=== PATIENT | male | born 1945 | race Asian ===

== ENCOUNTER → 2022-10-04 | Outpatient (REF) | payer MEDICARE, OTHER | LOC: M LAB REF 16:40 | PROVIDERS: ATTEND Surgery | DX: L72.3 Sebaceous cyst (principal) ==

== ENCOUNTER → 2025-03-19 | Outpatient (CLI) | payer MEDICARE, OTHER | LOC: M WHC 13:15 | PROVIDERS: ATTEND Orthopaedic Surgery | DX: M40.204 Unspecified kyphosis, thoracic region (principal) ==